=== PATIENT | male | born 1995 | race Hispanic/Latino ===

== ENCOUNTER 2016-08-04 18:12 | Emergency (ER) | payer OTHER ==
[~2016-08-04] VITALS: Ht 170.2 cm; Wt 81.0 kg
[~2016-08-04 18:12] MED LIST: ALPRAZOLAM1 MG PO; BUSPAR5 MG PO; CLONIDINE HCL0.1 MG PO; DEPAKOTE ER500 MG PO; GABAPENTIN300 MG PO; LEXAPRO10 MG PO; SEROQUEL300 MG PO; VYVANSE20 MG PO
[2016-08-04 18:21] VITALS: BP 132/77
[2016-08-05] MEDS ORDERED: SEROQUEL300 MG PO (16:25)
[2016-08-05] MEDS ORDERED: DIVALPROEX SOD500 MG PO (16:25)
[2016-08-05] MEDS ORDERED: XANAX1 MG PO (16:25)
== END 2016-08-04 19:15 | disposition left against medical advice (07) ==
LOC: EME 18:12
DX: Z76.0 Encounter for issue of repeat prescription (principal); Z53.21 Procedure and treatment not carried out due to patient leaving prior to being seen by health care provider

== ENCOUNTER 2016-08-05 15:28 | Emergency (ER) | payer OTHER ==
[~2016-08-05] VITALS: Ht 167.6 cm; Wt 81.7 kg
[2016-08-05] MEDS ORDERED: DIVALPROEX SOD500 MG PO (16:25)
[2016-08-05] MEDS ORDERED: SEROQUEL300 MG PO (16:25)
[2016-08-05] MEDS ORDERED: XANAX1 MG PO (16:25)
[2016-08-05 16:51] LABS: BASOPHIL COUNT 0.1 K/uL (0-0.1); EOSINOPHIL (%) 4.2 % (0-5); EOSINOPHIL COUNT 0.3 K/uL (0-0.3); HEMATOCRIT 41.4 % (38.0-50.0); IMMATURE GRANULOCYTE (%) 0.6 % (0.0-0.7); IMMATURE GRANULOCYTE COUNT 0.4 K/uL; LYMPHOCYTE COUNT 2.2 K/uL (1.0-2.8); MCH 30.8 PG (29.0-34.0); MCHC 35.3 G/DL (30.0-36.0); MCV 87.3 FL (86-99); MEAN PLAT.VOLUME 9.5 uM^3 (9.0-12.4); MONOCYTE (%) 13.7 % (3-12); MONOCYTE COUNT 0.9 K/uL (0-0.8); NEUTROPHIL (%) 47.3 % (45-76); NEUTROPHIL COUNT 3.1 K/uL (1.8-6.4); PLATELET COUNT 176 K/uL (156-360); RBC DIS.WIDTH-CV 11.9 % (11.8-14.6); RBC DIS.WIDTH-SD 37.7 % (39-53); RED BLOOD COUNT 4.74 M/uL (4.00-5.50); WHITE BLOOD COUNT 6.6 K/uL (4.1-10.2)
[2016-08-05 16:55] VITALS: BP 146/86
[2016-08-05 17:02] LABS: CHLORIDE 108 mEq/L (99-109); POTASSIUM 4.2 mEq/L (3.7-5.4); SODIUM 140 mEq/L (136-147)
[2016-08-05 17:04] LABS: GLUCOSE 94 mg/dL (70-99)
[2016-08-05 17:06] LABS: ANION GAP 9 MEQ/L (2-14); TOTAL BILIRUBIN 0.4 mg/dL (0.0-1.0)
[2016-08-05 17:07] LABS: SERUM ETHYL ALCOHOL < 10 mg/dL
[2016-08-05 17:08] LABS: ALKALINE PHOSPHATASE 55 IU/L (3-129); GFR ESTIMATE (CALCULATED) > 59 mL/min/
[2016-08-05 17:09] LABS: UREA NITROGEN (BUN) 19 mg/dL (9-23)
== END 2016-08-05 16:57 | disposition home or self-care (01) ==
LOC: EME 15:28
PROVIDERS: Emergency Medicine
DX: F41.0 Panic disorder [episodic paroxysmal anxiety] (principal); F31.9 Bipolar disorder, unspecified; F90.9 Attention-deficit hyperactivity disorder, unspecified type; F60.3 Borderline personality disorder; F17.210 Nicotine dependence, cigarettes, uncomplicated
CPT/HCPCS: 80053; 85025; 99281; 99283; G0480